=== PATIENT | female | born 1980 | race Caucasian/White ===

== ENCOUNTER 2017-09-14 23:14 | Emergency (ER) | payer BC ==
[~2017-09-14] VITALS: Ht 167.6 cm; Wt 76.5 kg
[~2017-09-14 23:14] MED LIST: DARV PO; PREN0.01 PO
[2017-09-14 23:32] VITALS: BP 169/85; PULSE 142; RESP 20; TEMP 98.4; O2SAT 100
[2017-09-14] MEDS ORDERED: BIRTH CONTROLL (23:38)
[2017-09-15] MEDS ORDERED: LIDOCAINE VISCOUS 2% SOLN 15 ML UDC SWISH-SPIT ONE (00:45)
--- NOTE | 2017-09-15 00:55 | PD ---
HPI Chief Complaint: ENT Complaint Time Seen by Provider: 00:45 Travel History International Travel<30 days: No Contact w/Intl Traveler<30days: No Traveled to known affect area: No History of Present Illness HPI Patient is a 37-year-old female presenting to the emergency room for evaluation of a moth in her right ear. This occurred just prior to arrival. Patient states that she saw him off the room and then felt fly into her ear. She denies any pain, dizziness, nausea. She has no significant past medical history. Onset of symptoms was sudden, there are mild in nature. PFSH Past Medical History Medical History: Denies Significant Hx Tetanus Vaccination: Unknown Influenza Vaccination: No ?: Not LMP: 08/24/2017 Past Surgical History Other Surgery: Yes ([facility]-2016) Social History Alcohol Use: No Tobacco Use: No Substance Use: No Allergies-Medications (Allergen,Severity, Reaction): Coded Allergies: No Known Allergies (Verified Allergy, Severe, 09/14/17) Reported Meds & Prescriptions Reported Meds & Active Scripts Active Reported [ Controll] Review of Systems Except as stated in HPI: all other systems reviewed are Neg HENT: Positive: Other (Foreign body in ear) Physical Exam Narrative GENERAL: Well-developed, well-nourished, alert female. Presenting in no acute distress. SKIN: Warm and dry. HEAD: Normocephalic. EARS: Bilateral pinnae and external canals appear within normal limits. Bilateral tympanic membranes without erythema, dullness or perforation. Right external ear canal had a small merrill mouth in it, this was removed easily with a curette. EYES: No scleral icterus. No injection or drainage. NECK: Supple, trachea midline. No JVD or lymphadenopathy. CARDIOVASCULAR: Regular rate and rhythm without murmurs, gallops, or rubs. RESPIRATORY: Breath sounds equal bilaterally. No accessory muscle use. GASTROINTESTINAL: Abdomen soft, non-tender, nondistended. MUSCULOSKELETAL: No cyanosis, or edema. BACK: Nontender without obvious deformity. No CVA tenderness. Data Data Last Documented VS Vital Signs Date Time Temp Pulse Resp B/P (MAP) Pulse Ox O2 Delivery O2 Flow Rate FiO2 09/14/17 23:32 98.4 142 20 169/85 (113) 100 Orders Orders Lidocaine 2% Viscous (Xylocaine 2% [facility] (09/15/17 00:45) [facility] Medical Decision Making Medical Screen Exam Complete: Yes Emergency Medical Condition: Yes Interpretation(s) Vital Signs Date Time Temp Pulse Resp B/P (MAP) Pulse Ox O2 Delivery O2 Flow Rate FiO2 09/14/17 23:32 98.4 142 20 169/85 (113) 100 Differential Diagnosis Foreign body versus normal exam versus ruptured tympanic membrane versus other Narrative Course Patient presented for evaluation of a foreign body in her right ear. A curette was used to remove him off from the right ear. Patient tolerated well. Patient was tachycardic on arrival likely secondary to anxiety related to the blood being in her ear. Vital signs are reassessed, heart rate has normalized. Patient is stable for discharge. Diagnosis Primary Impression: Foreign body in ear Qualified Codes: T16.1XXA - Foreign body in right ear, initial encounter Referrals: Primary Care Physician Patient Instructions: General Instructions Additional Instructions: Follow-up with your primary doctor Return to emergency department for any new worsening symptoms Med/Other Pt SpecificInfo: No Change to Meds Disposition: 01 DISCHARGE HOME Condition: Stable Tiffany Vega Sep 15, 2017 00:55
[2017-09-15 00:56] VITALS: PULSE 128
[2017-09-15 01:25] VITALS: BP 103/58; PULSE 66; RESP 18; O2SAT 96
== END 2017-09-15 01:15 | disposition home or self-care (01) ==
LOC: NEPD 23:14
DX: S00.451A Superficial foreign body of right ear, initial encounter (principal); T16.1XXA Foreign body in right ear, initial encounter
CPT/HCPCS: 69200